=== PATIENT | female | born 1990 | race American Indian/Alaskan Native ===

== ENCOUNTER 2017-01-17 06:51 | Emergency (ER) | payer OTHER ==
[2017-01-17 08:27] LABS: Bacteria,Urine 1+ /HPF (Negative); Bilirubin,Urine NEG (Negative); Blood,Urine LG (Negative); Ketones,Urine NEG (Negative); Leukocyte Esterase,Urine NEG (Negative); Mucus,Urine 3+ /HPF; Nitrite,Urine NEG (Negative)
[2017-01-17 08:27] LABS: Basophils % (Auto) 0.7 % (0.0-1.8); Eosinophils % (Auto) 4.7 % (0.0-4.3); Hematocrit 39.7 % (30.3-42.9); Mean Corpuscular HGB Conc 33 % (30-34); Mean Corpuscular Hemoglobin 29 pg (28-32); Mean Corpuscular Volume 87 fl (79-97); Platelet Count 240 K/mm3 (140-440); Red Blood Count 4.55 M/mm3 (3.65-5.03); White Blood Count 5.8 K/mm3 (4.5-11.0)
[2017-01-17 08:33] LABS: Alanine Aminotransferase 35 units/L (7-56); Albumin/Globulin Ratio 1.2 %; Alkaline Phosphatase 56 units/L (35-129); Anion Gap 16 mmol/L; BUN/Creatinine Ratio 12.85; Blood Urea Nitrogen 9 mg/dL (7-17); Calcium 8.8 mg/dL (8.4-10.2); Carbon Dioxide 24 mmol/L (22-30); Chloride 105.9 mmol/L (98-107); Glucose 135 mg/dL (65-100); Lipase 29 units/L (13-60); Potassium 3.9 mmol/L (3.6-5.0); Sodium 142 mmol/L (137-145); Total Protein 7.4 g/dL (6.3-8.2)
--- NOTE | 2017-01-17 11:27 | Emergency Department Report ---
ED Abdominal Pain HPI - General Chief Complaint: Abdominal Pain Stated Complaint: ABDOMINAL PAIN Time Seen by Provider: 01/17/17 11:25 Source: patient Mode of arrival: Ambulatory Limitations: No Limitations - History of Present Illness Initial Comments: Patient complains of right upper quadrant abdominal pain. She states that she vomited prior to arrival. She ate last night but not this morning. She has no ongoing nausea. She denies fever or chills. She states the pain does not radiate and does not involve her flank as the triage note apparently incorrectly states. She states that she has no previous history of this problem. She denies a family history of gallstones. She denies dysuria. MD Complaint: abdominal pain, other (some discomfort associated with vomiting only) -: Gradual, hour(s) Location: RUQ Radiation: none Migration to: no migration Severity: moderate Quality: aching Consistency: now resolved Improves With: nothing Worsens With: nothing Associated Symptoms: denies other symptoms (except), nausea, vomiting. denies: diarrhea, fever, chills, constipation, dysuria, hematemesis, hematochezia, melena, hematuria, anorexia, syncope - Related Data Previous Rx's Medication Instructions Recorded Last Taken Type traMADol [Ultram] 50 mg PO Q6HR PRN #10 tablet 01/17/17 Unknown Rx Allergies Allergy/AdvReac Type Severity Reaction Status Date / Time No Known Allergies Allergy Unverified 01/17/17 07:39 ED Review of Systems ROS: Stated complaint: ABDOMINAL PAIN Other details as noted in HPI Constitutional: denies: chills, fever Eyes: denies: eye pain, eye discharge, vision change ENT: denies: ear pain, throat pain Respiratory: denies: cough, shortness of breath, wheezing Cardiovascular: denies: chest pain, palpitations Endocrine: no symptoms reported Gastrointestinal: as per HPI, abdominal pain, nausea, vomiting. denies: diarrhea Genitourinary: denies: urgency, dysuria, discharge Musculoskeletal: denies: back pain, joint swelling, arthralgia Skin: denies: rash, lesions Neurological: denies: headache, weakness, paresthesias Psychiatric: denies: anxiety, depression Hematological/Lymphatic: denies: easy bleeding, easy bruising ED Past Medical Hx - Past Medical History Previous Medical History?: No - Surgical History Past Surgical History?: No - Social History Smoking Status: Never Smoker Substance Use Type: Alcohol - Medications Home Medications: Home Medications Medication Instructions Recorded Confirmed Last Taken Type traMADol [Ultram] 50 mg PO Q6HR PRN #10 tablet 01/17/17 Unknown Rx ED Physical Exam - General Limitations: No Limitations General appearance: alert, in no apparent distress - Head Head exam: Present: atraumatic, normocephalic - Eye Eye exam: Present: normal appearance - ENT ENT exam: Present: mucous membranes moist - Neck Neck exam: Present: normal inspection - Respiratory Respiratory exam: Present: normal lung sounds bilaterally. Absent: respiratory distress - Cardiovascular Cardiovascular Exam: Present: regular rate, normal rhythm. Absent: systolic murmur, diastolic murmur, rubs, gallop - GI/Abdominal GI/Abdominal exam: Present: soft, normal bowel sounds. Absent: distended, tenderness, guarding, rebound, rigid - Extremities Exam Extremities exam: Present: normal inspection - Back Exam Back exam: Present: normal inspection - Neurological Exam Neurological exam: Present: alert, oriented X3, CN II-XII intact. Absent: motor sensory deficit - Psychiatric Psychiatric exam: Present: normal affect, normal mood - Skin Skin exam: Present: warm, dry, intact, normal color. Absent: rash ED Course Vital Signs 01/17/17 01/17/17 01/17/17 07:36 10:57 10:58 Temperature 97.9 F Pulse Rate 68 63 Respiratory 16 16 16 Rate Blood Pressure 130/79 Blood Pressure 106/65 [Left] O2 Sat by Pulse 99 99 99 Oximetry 01/17/17 13:24 Temperature Pulse Rate 59 L Respiratory 18 Rate Blood Pressure Blood Pressure 98/56 [Left] O2 Sat by Pulse 98 Oximetry - Reevaluation(s) Reevaluation #1: Patient was given Zofran and IV fluids prior to my arrival. She now states she is ready for discharge. She is ready had an ultrasound and I don't see an indication to repeat this. She has an appointment to follow up with her OB doctor. I will place her on Kytril for her hyperemesis gravidarum 01/17/17 11:51 Reevaluation #2: Patient resting comfortably without any complaints of pain ultrasound was negative. 01/17/17 15:45 ED Medical Decision Making - Lab Data Result diagrams: 01/17/17 07:42 01/17/17 07:42 Laboratory Results - last 24 hr 01/17/17 01/17/17 01/17/17 07:42 07:42 07:42 WBC 5.8 RBC 4.55 Hgb 13.0 Hct 39.7 MCV 87 MCH 29 MCHC 33 RDW 13.0 L Plt Count 240 Lymph % (Auto) 44.1 H [place] % (Auto) 9.0 H Eos % (Auto) 4.7 H Baso % (Auto) 0.7 Lymph # 2.5 [place] # 0.5 Eos # 0.3 Baso # 0.0 Seg Neutrophils % 41.5 Seg Neutrophils # 2.4 Sodium 142 Potassium 3.9 Chloride 105.9 Carbon Dioxide 24 Anion Gap 16 BUN 9 Creatinine 0.7 Estimated GFR > 60 BUN/Creatinine Ratio 12.85 Glucose 135 H Calcium 8.8 Total Bilirubin 0.30 AST 35 ALT 35 Alkaline Phosphatase 56 Total Protein 7.4 Albumin 4.0 Albumin/Globulin Ratio 1.2 Lipase 29 HCG, Qual Negative Urine Color Urine Turbidity Urine pH Ur Specific [place] Urine Protein Urine Glucose (UA) Urine Ketones Urine Blood Urine Nitrite Urine Bilirubin Urine Urobilinogen Ur Leukocyte Esterase Urine WBC (Auto) Urine RBC (Auto) U Epithel Cells (Auto) Urine Bacteria (Auto) Urine Mucus 01/17/17 07:57 WBC RBC Hgb Hct MCV MCH MCHC RDW Plt Count Lymph % (Auto) [place] % (Auto) Eos % (Auto) Baso % (Auto) Lymph # [place] # Eos # Baso # Seg Neutrophils % Seg Neutrophils # Sodium Potassium Chloride Carbon Dioxide Anion Gap BUN Creatinine Estimated GFR BUN/Creatinine Ratio Glucose Calcium Total Bilirubin AST ALT Alkaline Phosphatase Total Protein Albumin Albumin/Globulin Ratio Lipase HCG, Qual Urine Color Yellow Urine Turbidity Clear Urine pH 5.0 Ur Specific [place] 1.026 Urine Protein 30 mg/dl Urine Glucose (UA) Neg Urine Ketones Neg Urine Blood Lg Urine Nitrite Neg Urine Bilirubin Neg Urine Urobilinogen 2.0 Ur Leukocyte Esterase Neg Urine WBC (Auto) 3.0 Urine RBC (Auto) 38.0 U Epithel Cells (Auto) 22.0 H Urine Bacteria (Auto) 1+ Urine Mucus 3+ Laboratory Results - last 24 hr 01/17/17 01/17/17 01/17/17 07:42 07:42 07:42 WBC 5.8 RBC 4.55 Hgb 13.0 Hct 39.7 MCV 87 MCH 29 MCHC 33 RDW 13.0 L Plt Count 240 Lymph % (Auto) 44.1 H [place] % (Auto) 9.0 H Eos % (Auto) 4.7 H Baso % (Auto) 0.7 Lymph # 2.5 [place] # 0.5 Eos # 0.3 Baso # 0.0 Seg Neutrophils % 41.5 Seg Neutrophils # 2.4 Sodium 142 Potassium 3.9 Chloride 105.9 Carbon Dioxide 24 Anion Gap 16 BUN 9 Creatinine 0.7 Estimated GFR > 60 BUN/Creatinine Ratio 12.85 Glucose 135 H Calcium 8.8 Total Bilirubin 0.30 AST 35 ALT 35 Alkaline Phosphatase 56 Total Protein 7.4 Albumin 4.0 Albumin/Globulin Ratio 1.2 Lipase 29 HCG, Qual Negative Urine Color Urine Turbidity Urine pH Ur Specific [place] Urine Protein Urine Glucose (UA) Urine Ketones Urine Blood Urine Nitrite Urine Bilirubin Urine Urobilinogen Ur Leukocyte Esterase Urine WBC (Auto) Urine RBC (Auto) U Epithel Cells (Auto) Urine Bacteria (Auto) Urine Mucus 01/17/17 07:57 WBC RBC Hgb Hct MCV MCH MCHC RDW Plt Count Lymph % (Auto) [place] % (Auto) Eos % (Auto) Baso % (Auto) Lymph # [place] # Eos # Baso # Seg Neutrophils % Seg Neutrophils # Sodium Potassium Chloride Carbon Dioxide Anion Gap BUN Creatinine Estimated GFR BUN/Creatinine Ratio Glucose Calcium Total Bilirubin AST ALT Alkaline Phosphatase Total Protein Albumin Albumin/Globulin Ratio Lipase HCG, Qual Urine Color Yellow Urine Turbidity Clear Urine pH 5.0 Ur Specific [place] 1.026 Urine Protein 30 mg/dl Urine Glucose (UA) Neg Urine Ketones Neg Urine Blood Lg Urine Nitrite Neg Urine Bilirubin Neg Urine Urobilinogen 2.0 Ur Leukocyte Esterase Neg Urine WBC (Auto) 3.0 Urine RBC (Auto) 38.0 U Epithel Cells (Auto) 22.0 H Urine Bacteria (Auto) 1+ Urine Mucus 3+ - Radiology Data Radiology results: report reviewed interpreted by me: No acute process - Medical Decision Making I believe the urine results are consistent with contamination and not likely nor clinically indicative of a urinary tract infection. Negative leukoesterase negative nitrite many epithelial cells Critical care attestation.: If time is entered above; I have spent that time in minutes in the direct care of this critically ill patient, excluding procedure time. ED Disposition Clinical Impression: Abdominal pain Qualifiers: Abdominal location: right upper quadrant Qualified Code(s): R10.11 - Right upper quadrant pain Disposition: DC- TO HOME OR SELFCARE Is pt being admited?: No Does the pt Need Aspirin: No Condition: Stable Instructions: Hyperemesis Gravidarum (ED), Abdominal Pain (ED) Additional Instructions: Follow-up with primary care physician. Return any acute change or problem. Prescriptions: traMADol [Ultram] 50 mg PO Q6HR PRN #10 tablet PRN Reason: Pain Referrals: PRIMARY CARE, [Primary Care Provider] - 3-5 Days [facility] [Provider Group] - 3-5 Days Time of Disposition: 15:45
--- NOTE | 2017-01-17 12:52 | Ultrasound Report ---
Abdominal sonogram: History: Right upper quadrant pain. Findings: Fatty liver. No intrahepatic or extrahepatic dilatation. Common bile duct diameter 4.5 mm. Gallbladder wall thickness 1.3 mm. No calculi in the gallbladder. Right kidney 10.3 x 4.6 x 4.3 cm. Cortical thickness 1.1 cm. Left kidney 10.9 x 4.8 x 3.6 cm. Cortical thickness 1.5 cm. No definite evidence of mass or hydronephrosis. Pancreas not well visualized. Spleen measures 8.1 cm and is normal. Impression: Fatty liver.
[2017-01-17 16:14] VITALS: BP 105/59
== END 2017-01-17 16:14 | disposition home or self-care (01) ==
LOC: ED 06:51
DX: R10.11 Right upper quadrant pain (principal); R11.10 Vomiting, unspecified
CPT/HCPCS: 36415; 76700; 80053; 81001; 83690; 84703; 85025; 99283; 99284